=== PATIENT | male | born 1950 | race Caucasian/White ===

== ENCOUNTER → 2017-12-10 | Outpatient (CLI) | payer MEDICARE ==
[~2017-12-10] MED LIST: ALBU0.086 INH; AMLO10 PO; CIPR500T2 PO; FENO50TA PO; GLIP5 PO; LASI20TA PO; LORA-392 PO; TELM40 PO; TERA2CAP3 PO; TOPR50TA PO; nebulizer
--- NOTE | 2017-12-12 08:28 | RSPPFT ---
DATE OF PROCEDURE: 12/10/17 COMMENTS: Spirometry shows FVC of 2.6 predicted 5.0, FEV1 of 1.4 predicted 4.0, FV1/FVC ratio 54% predicted 78%. Post-bronchodilator FVC increases to 2.9 and FEV1 to 1.7. IMPRESSION: On the basis of the above, patient has an obstructive lung defect with responsiveness to acutely inhaled bronchodilator. Air trapping is present. Airways resistance is increased but may be a technical error and may need to be re-evaluated.
== END ==
LOC: HRSP 12:08
PROVIDERS: ATTEND Internal Medicine Pulmonary Disease
DX: J44.9 Chronic obstructive pulmonary disease, unspecified (principal)
CPT/HCPCS: 36600; 82805; 94060; 94618; 94726; 94729

== ENCOUNTER 2018-06-09 12:38 | Observation (INO) ==
[2018-06-09] MEDS ORDERED: Morphine Sulfate Inj 2 MG/ML Vial IV.PUSH ONE (12:56)
[2018-06-09] MEDS: Metoprolol Inj 5 MG/5 ML Vial IV.PUSH SCH ×3 (13:26→14:14)
--- NOTE | 2018-06-09 13:26 | XR ---
EXAM DATE: 06/09/2018 1:22 PM EST AGE/SEX: 67 years / Male INDICATIONS: Chest pain. CLINICAL DATA: This is the patient's initial encounter. Patient reports that signs and symptoms have been present for 4 - 6 days and indicates a pain score of 1/10. MEDICAL/SURGICAL HISTORY: None. None. COMPARISON: [facility] [place]ST SINGLE AP, 07/20/2011. . FINDINGS: A single AP view of the chest demonstrates the lungs to be symmetrically aerated without evidence of mass, infiltrate or effusion. The cardiomediastinal contours are unremarkable. Osseous structures a re intact. CONCLUSION: Negative examination. Electronically signed by: Wendy Brady MD 06/09/2018 1:24 PM EST
--- NOTE | 2018-06-09 13:29 | ED ---
HPI General Chief Complaint: Chest Pain Stated Complaint: cardiac Time Seen by Provider: 06/09/18 12:45 Source: patient Mode of arrival: ambulatory Limitations: no limitations History of Present Illness HPI narrative: 67-year-old male history diabetes hypertension hyperlipidemia and COPD arrives with palpitations and also a vague discomfort in the left neck. No fever chills or cough. Symptoms started while the patient was out at [employer]. Shortness of breath is reported. Patient reports some shortness of breath with exertion patient also reports chest pain at times with dyspnea. Patient denies history of coronary artery disease/stents. No prior cath. MD complaint: Reports chest pain STEMI Alert: No Duration: constant Onset: during rest Related Data Home Medications Medication Instructions Recorded Confirmed amlodipine [Norvasc] 10 mg PO DAILY 06/09/18 06/09/18 canagliflozin [Invokana] 300 mg PO DAILY 06/09/18 06/09/18 exenatide [Byetta] 10 mcg SUBCUT DAILY 06/09/18 fenofibrate nanocrystallized 145 mg PO DAILY 06/09/18 06/09/18 [Tricor] furosemide 20 mg PO DAILY 06/09/18 06/09/18 glipizide [Glucotrol] 5 mg PO DAILY 06/09/18 06/09/18 lorazepam [Ativan] 0.5 mg PO DAILY PRN 06/09/18 06/09/18 metformin 500 mg PO QPM 06/09/18 06/09/18 metoprolol tartrate 100 mg PO BID 06/09/18 06/09/18 omeprazole 20 mg PO DAILY 06/09/18 06/09/18 telmisartan [Micardis] 80 mg PO DAILY 06/09/18 06/09/18 Allergies Allergy/AdvReac Type Severity Reaction Status Date / Time No Known Allergies Allergy Verified 06/09/18 12:42 Review of Systems ROS: all other systems reviewed are negative Constitutional Denies fever(s) [facility] Medical History Medical History COPD (chronic obstructive pulmonary disease) (Acute) Diabetes (Acute) Hard of hearing (Acute) High cholesterol (Acute) Hypertension (Acute) Surgical History Surgical History Hx of colectomy (Acute) Hx of hernia repair (Acute) Social History Social History Substance History: No History of Abuse Smoking Status: Never smoker How Often Do You Have a Drink Containing Alcohol: Never Recent Travel in [facility] within the Last 8 Weeks: No Recent Out of Country Travel within the Last 8 Weeks: No Immunization History Tetanus Immunization: <5 Years Exam Narrative Exam Narrative: GENERAL: This 7-year-old male pleasant well-nourished well- developed mild distress due to pain and/or anxiety, BMI 42 SKIN: Focused skin assessment warm/dry. HEAD: Atraumatic. Normocephalic. EYES: Pupils equal and round. No scleral icterus. No injection or drainage. ENT: No nasal bleeding or discharge. Mucous membranes pink and moist. NECK: Trachea midline. No JVD. CARDIOVASCULAR: Regular rate and rhythm. No murmur appreciated. RESPIRATORY: No accessory muscle use. Clear to auscultation. Breath sounds equal bilaterally. GASTROINTESTINAL: Abdomen soft, non-tender, nondistended. Hepatic and splenic margins not palpable. MUSCULOSKELETAL: No obvious deformities. No clubbing. No cyanosis. No edema. NEUROLOGICAL: Awake and alert. No obvious cranial nerve deficits. Motor grossly within normal limits. Normal speech. PSYCHIATRIC: Appropriate mood and affect; insight and judgment normal. Course Initial Documented Vital Signs Temperature 98.0 F 06/09/18 12:39 Pulse Rate 90 06/09/18 12:39 Respiratory Rate 24 06/09/18 12:39 Blood Pressure 201/105 H 06/09/18 12:39 Pulse Oximetry 95 06/09/18 12:39 Last Documented Vital Signs Temperature 98.0 F 06/09/18 12:39 Pulse Rate 74 06/09/18 14:14 Respiratory Rate 16 06/09/18 14:14 Blood Pressure 172/86 H 06/09/18 14:14 Pulse Oximetry 98 06/09/18 14:14 Medical Decision Making [facility] Narrative Medical decision making narrative: Patient arrives with palpitations shortness of breath and neck discomfort on the left side. He has a history of diabetes hypertension and COPD. Lipids were elevated in the past. Workup so far is unremarkable including troponin EKG. EKG shows right bundle branch block with left anterior fascicular block rate of 79 with sinus arrhythmia. Chest pain center protocol considered most reasonable next step for patient. Medical Screen Exam Complete: Yes Emergency Medical Condition: Yes Differential Diagnosis Differential Diagnosis: NSTEMI, unstable angina, coronary vasospasm, PE, PTX, aortic dissection, pericarditis, myocarditis, endocarditis, PNA, esophageal disease, aneurysm, musculoskeletal etiologies, anxiety, cocaine/sympathomimetic abuse Lab Data Result diagrams: 06/09/18 13:15 06/09/18 13:15 Lab Results 06/09/18 06/09/18 06/09/18 Range/Units 13:15 13:15 13:15 WBC 7.8 (4.0-11.0) th/mm3 RBC 5.37 (4.50-5.90) mil/mm3 Hgb 15.3 (13.0-17.0) gm/dL Hct 45.8 (39.0-51.0) % MCV 85.2 (80.0-100.0) fL MCH 28.5 (27.0-34.0) pg MCHC 33.5 (32.0-36.0) % RDW 15.2 (11.6-17.2) % Plt Count 166 (150-450) th/mm3 MPV 8.1 (7.0-11.0) fL Neut % (Auto) 68.4 (16.0-70.0) % Lymph % (Auto) 21.0 (9.0-44.0) % Harmon % (Auto) 8.1 H (0.0-8.0) % Eos % (Auto) 2.0 (0.0-4.0) % Baso % (Auto) 0.5 (0.0-2.0) % Neut # (Auto) 5.3 (1.8-7.7) th/mm3 Lymph # (Auto) 1.6 (1.0-4.8) th/mm3 Harmon # (Auto) 0.6 (0.0-0.9) th/mm3 Eos # (Auto) 0.2 (0.0-0.4) th/mm3 Baso # (Auto) 0.0 (0.0-0.2) th/mm3 WBC Differential . Differential Comment Auto diff final PT 9.7 L (9.8-11.6) sec INR 1.0 Ratio APTT 26.0 (23.4-31.7) sec Sodium 136 (136-145) meq/L Potassium 3.9 (3.5-5.1) meq/L Chloride 104 (98-107) meq/L Carbon Dioxide 21.5 (21.0-32.0) meq/L Anion Gap 11 (5-15) meq/L BUN 24 H (7-18) mg/dL Creatinine 0.89 (0.60-1.30) mg/dL Estimated GFR 85 L (>89) mL/min Random Glucose 138 H (74-106) mg/dL Calcium 9.0 (8.5-10.1) mg/dL Magnesium 2.0 (1.5-2.5) mg/dL Total Bilirubin 0.5 (0.2-1.0) mg/dL AST 30 (15-37) U/L ALT 42 (12-78) U/L Alkaline Phosphatase 44 L (45-117) U/L Troponin I Less than 0.02 L (0.02-0.05) ng/mL B-Natriuretic Peptide (0-100) pg/mL Total Protein 7.8 (6.4-8.2) g/dL Albumin 3.9 (3.4-5.0) g/dL Lipase 360 (73-393) U/L 06/09/18 06/09/18 Range/Units 13:15 13:15 WBC (4.0-11.0) th/mm3 RBC (4.50-5.90) mil/mm3 Hgb (13.0-17.0) gm/dL Hct (39.0-51.0) % MCV (80.0-100.0) fL MCH (27.0-34.0) pg MCHC (32.0-36.0) % RDW (11.6-17.2) % Plt Count (150-450) th/mm3 MPV (7.0-11.0) fL Neut % (Auto) (16.0-70.0) % Lymph % (Auto) (9.0-44.0) % Harmon % (Auto) (0.0-8.0) % Eos % (Auto) (0.0-4.0) % Baso % (Auto) (0.0-2.0) % Neut # (Auto) (1.8-7.7) th/mm3 Lymph # (Auto) (1.0-4.8) th/mm3 Harmon # (Auto) (0.0-0.9) th/mm3 Eos # (Auto) (0.0-0.4) th/mm3 Baso # (Auto) (0.0-0.2) th/mm3 WBC Differential Differential Comment PT (9.8-11.6) sec INR Ratio APTT (23.4-31.7) sec Sodium (136-145) meq/L Potassium (3.5-5.1) meq/L Chloride (98-107) meq/L Carbon Dioxide (21.0-32.0) meq/L Anion Gap (5-15) meq/L BUN (7-18) mg/dL Creatinine (0.60-1.30) mg/dL Estimated GFR (>89) mL/min Random Glucose (74-106) mg/dL Calcium (8.5-10.1) mg/dL Magnesium Cancelled (1.5-2.5) mg/dL Total Bilirubin (0.2-1.0) mg/dL AST (15-37) U/L ALT (12-78) U/L Alkaline Phosphatase (45-117) U/L Troponin I (0.02-0.05) ng/mL B-Natriuretic Peptide 12 (0-100) pg/mL Total Protein (6.4-8.2) g/dL Albumin (3.4-5.0) g/dL Lipase (73-393) U/L Imaging Data Radiologist's impression: Chest X-Ray 06/09/18 12:56 CONCLUSION: Negative examination. Discharge Plan Physicians Team ED Provider: Jay Morgan Primary Care Provider: Vince Laurent Rxs /Orders / Referrals /Forms Prescriptions: No Action metoprolol tartrate 100 mg Tablet 100 mg PO BID RF: 0 lorazepam [Ativan] 0.5 mg Tablet 0.5 mg PO DAILY PRN (Reason: Anxiety) RF: 0 amlodipine [Norvasc] 10 mg Tablet 10 mg PO DAILY RF: 0 telmisartan [Micardis] 80 mg Tablet 80 mg PO DAILY RF: 0 omeprazole 20 mg Capsule,Delayed Release(Dr/Ec) 20 mg PO DAILY RF: 0 furosemide 20 mg Tablet 20 mg PO DAILY RF: 0 glipizide [Glucotrol] 5 mg Tablet 5 mg PO DAILY RF: 0 metformin 500 mg Tablet Extended Release 24hr 500 mg PO QPM RF: 0 exenatide [Byetta] 10 mcg/dose(250 mcg/mL) 2.4 mL Pen Injector 10 mcg SUBCUT DAILY RF: 0 fenofibrate nanocrystallized [Tricor] 145 mg Tablet 145 mg PO DAILY RF: 0 canagliflozin [Invokana] 300 mg Tablet 300 mg PO DAILY RF: 0 Discharge Interventions Interventions: Vital Signs Last Done: 06/09/18 12:53 Status ED Status: With Doctor
[2018-06-09 13:31] LABS: Baso % (Auto) 0.5 % (0.0-2.0); Eos # (Auto) 0.2 th/mm3 (0.0-0.4); Hematocrit 45.8 % (39.0-51.0); Hemoglobin 15.3 gm/dL (13.0-17.0); Lymph # (Auto) 1.6 th/mm3 (1.0-4.8); Mean Corpuscular HGB Conc 33.5 % (32.0-36.0); Mean Corpuscular Hemoglobin 28.5 pg (27.0-34.0); Mean Corpuscular Volume 85.2 fL (80.0-100.0); Mean Platelet Volume 8.1 fL (7.0-11.0); Mono # (Auto) 0.6 th/mm3 (0.0-0.9); Mono % (Auto) 8.1 % (0.0-8.0); Neut # (Auto) 5.3 th/mm3 (1.8-7.7); Neut % (Auto) 68.4 % (16.0-70.0); Platelet Count 166 th/mm3 (150-450); Red Blood Count 5.37 mil/mm3 (4.50-5.90); Red Cell Distribution Width 15.2 % (11.6-17.2); White Blood Count 7.8 th/mm3 (4.0-11.0)
[2018-06-09 13:41] LABS: Prothrombin Time 9.7 sec (9.8-11.6)
[2018-06-09 13:44] LABS: Alanine Aminotransferase 42 U/L (12-78)
[2018-06-09 13:46] LABS: Albumin 3.9 g/dL (3.4-5.0); Anion Gap 11 meq/L (5-15); Aspartate Aminotransferase 30 U/L (15-37); Blood Urea Nitrogen 24 mg/dL (7-18); Carbon Dioxide 21.5 meq/L (21.0-32.0); Chloride 104 meq/L (98-107); Glomerular Filtration Rate 85 mL/min (>89); Glucose,Random 138 mg/dL (74-106); Lipase 360 U/L (73-393); Potassium 3.9 meq/L (3.5-5.1); Sodium 136 meq/L (136-145)
[2018-06-09 13:48] LABS: Alkaline Phosphatase 44 U/L (45-117); Total Protein 7.8 g/dL (6.4-8.2)
[2018-06-09] MEDS ORDERED: Acetaminophen 500 MG Tablet PO PRN (14:59)
[2018-06-09] MEDS ORDERED: RESP: Albuterol Concentrated 2.5 MG/0.5 ML Neb NEB PRN (15:59)
--- NOTE | 2018-06-09 15:59 | P.HPCA ---
History of Present Illness Primary Care Physician: Vince Laurent MD Chief Complaint: Palpations History of Present Illness: 67 year old male with multiple comorbidities including type II diabetes, hypertension, COPD, sleep apnea, and morbidly obese presents to ER for further evaluation of palpations. Onset this morning while at [employer]. Describes a "fluttering sensation and feeling my heart beat." No associated symptoms nausea , vomiting, diaphoresis, or change dyspnea. Reports left-sided neck discomfort associated during episode, difficult for him to describe. Duration of palpations 2 hours occurring intermittently. Denies chest pain or discomfort. No history of atrial fibrillation, coronary artery disease, or DVT. No precipitating or relieving factors. Upon further discussion, reported exertional chest pain within the last few months. With exertion he becomes shortness of breath with accompanying left anterior chest pressure, no radiation. Chest pressure resolves with rest, as does dyspnea. Endorses having 1 /3 of lung function, therefore related chest pressure/dyspnea due to poor lung function. Past cardiac testing Remote chemical cardiac stress testing. Remote stress echocardiogram. Never required cardiac catheterization. Social history Known diabetes and hypertension. No known hyperlipidemia, not taking statin therapy despite diagnosis of diabetes. No known coronary artery disease. Lifelong non-smoker. No alcohol or recreational drug use. . Sedentary lifestyle. Family history Noncontributory for early onset cardiovascular disease. Mother from aneurysm. Father from colon cancer with metastasis to lung. He is an only child. - Diagnosis (1) Chest pain of unknown etiology (2) Type 2 diabetes mellitus (3) COPD (chronic obstructive pulmonary disease) (4) Sleep apnea (5) Hypertension Review of Systems All other systems reviewed negative except as stated in HPI PMFSH - History History Provided By: Patient - Medical History Medical History: Medical History (Last Updated 06/09/18 @ 17:47 by SONU Walton) COPD (chronic obstructive pulmonary disease) Diabetes GERD (gastroesophageal reflux disease) Hard of hearing High cholesterol Hypertension Sleep apnea - Surgical History Surgical History: Surgical History (Last Reviewed 06/09/18 @ 17:47 by SONU Walton) Hx of colectomy Hx of hernia repair - Family History Family History: Family History (Last Updated 06/09/18 @ 17:47 by SONU Walton) Father Colon cancer metastasized to lung Mother Aneurysm - Social History I have reviewed the patient's Social History: Yes - Tobacco History Second Hand Smoke Exposure: No Tobacco Use In Past 30 Days: No Smoking Status: Never smoker - Alcohol History How Often Do You Have a Drink Containing Alcohol: Never - Substance Use History Substance History: No History of Abuse - Travel History Recent Travel in the [place] Within the Last 8 Weeks: No Recent Travel Out of the Country Within the Last 8 Weeks: No - Immunization History Tetanus Immunization: <5 Years Medications and Allergies Active Medications: Active Medications Acetaminophen (Tylenol) 500 mg PO Q4H PRN PRN Reason: HEADACHE Ondansetron HCl (Zofran Inj) 4 mg IV.PUSH Q6H PRN PRN Reason: NAUSEA Sodium Chloride (Ns Flush) 2 ml IV.FLUSH UNSCH PRN PRN Reason: FLUSH AFTER USING IV ACCESS Last Admin: 06/09/18 13:26 Dose: 2 ml Sodium Chloride (Ns Flush) 2 ml IV.FLUSH BID CORINA Allergies Allergy/AdvReac Type Severity Reaction Status Date / Time No Known Allergies Allergy Verified 06/09/18 12:42 Home Medications Medication Instructions Recorded Confirmed Type albiglutide [Tanzeum] 50 mg SUBCUT Q7D 06/09/18 06/09/18 History amlodipine [Norvasc] 10 mg PO DAILY 06/09/18 06/09/18 History chlorthalidone 25 mg PO DAILY 06/09/18 06/09/18 History empagliflozin [Jardiance] 25 mg PO DAILY 06/09/18 06/09/18 History fenofibrate nanocrystallized 145 mg PO DAILY 06/09/18 06/09/18 History [Tricor] glipizide [Glucotrol] 20 mg PO BID 06/09/18 06/09/18 History insulin aspart U-100 [Novolog 8 unit SUBCUT DAILY 06/09/18 06/09/18 History Flexpen U-100 Insulin] insulin degludec [Tresiba 50 units SUBCUT HS 06/09/18 06/09/18 History FlexTouch U-200] lorazepam [Ativan] 0.5 mg PO DAILY PRN 06/09/18 06/09/18 History losartan 100 mg PO DAILY 06/09/18 06/09/18 History lubiprostone [Amitiza] 8 mcg PO BID 06/09/18 06/09/18 History metformin 1,000 mg PO BID 06/09/18 06/09/18 History metoprolol tartrate 100 mg PO BID 06/09/18 06/09/18 History omeprazole 20 mg PO DAILY 06/09/18 06/09/18 History simvastatin 20 mg PO QPM 06/09/18 06/09/18 History telmisartan [Micardis] 80 mg PO DAILY 06/09/18 06/09/18 History Exam Vital signs: Vital Signs 06/09/18 12:39 06/09/18 12:53 06/09/18 13:18 Temperature 98.0 F Pulse Rate 90 86 88 Respiratory Rate 24 16 Blood Pressure 201/105 H 184/89 H Pulse Oximetry 95 98 96 06/09/18 13:26 06/09/18 13:40 06/09/18 14:14 Temperature Pulse Rate 88 75 74 Respiratory Rate 18 16 16 Blood Pressure 187/92 H 153/75 H 172/86 H Pulse Oximetry 98 97 98 06/09/18 15:45 06/09/18 15:56 Temperature Pulse Rate 73 Respiratory Rate Blood Pressure Pulse Oximetry 98 97 Intake & Output 06/08/18 06/09/18 06/09/18 18:59 06:59 18:59 Weight 149.685 kg Narrative: GENERAL: Alert WN, WD, NAD, pleasant, morbidly obese male HEAD: NC, AT EYES: Sclera clear, conjunctiva without injection ENT: Mucous membranes pink and moist NECK: Supple, no masses, trachea midline CV: RRR, slight systolic murmur, no rub, gallop, or JVD, S1-S2 no S3-S4. No carotid bruits. Chest wall pain nontender with palpation. RESP: Diminished lungs throughout bilateral, no crackles, wheeze, or rhonchi, symmetrical chest rise, nonlabored, able to speak in full sentences ABD: Soft, NT, ND, no masses, positive bowel tones, large EXT: Pulses +2x4, no dependent edema MS: Normal tone x4 extremities, nontender, no obvious deformities, full range of motion NEURO: CN II through CN XII grossly intact, motor strength 5/5 PSYCH: A+O x3, pleasant affect, appropriate speech, appropriate, insight and judgment SKIN: Normal turgor, normal texture, no lesions, no rashes Results 06/09/18 13:15 06/09/18 13:15 Cardiac Enzymes 06/09/18 06/09/18 Range/Units 13:15 13:15 AST 30 (15-37) U/L Troponin I Less than 0.02 L (0.02-0.05) ng/mL B-Natriuretic Peptide 12 (0-100) pg/mL Coagulation 06/09/18 06/09/18 Range/Units 13:15 13:15 PT 9.7 L (9.8-11.6) sec APTT 26.0 (23.4-31.7) sec B-Natriuretic Peptide 12 (0-100) pg/mL CBC 06/09/18 Range/Units 13:15 WBC 7.8 (4.0-11.0) th/mm3 RBC 5.37 (4.50-5.90) mil/mm3 Hgb 15.3 (13.0-17.0) gm/dL Hct 45.8 (39.0-51.0) % Plt Count 166 (150-450) th/mm3 Neut # (Auto) 5.3 (1.8-7.7) th/mm3 Lymph # (Auto) 1.6 (1.0-4.8) th/mm3 Cross # (Auto) 0.6 (0.0-0.9) th/mm3 Eos # (Auto) 0.2 (0.0-0.4) th/mm3 Baso # (Auto) 0.0 (0.0-0.2) th/mm3 Comprehensive Metabolic Panel 06/09/18 Range/Units 13:15 Sodium 136 (136-145) meq/L Potassium 3.9 (3.5-5.1) meq/L Chloride 104 (98-107) meq/L Carbon Dioxide 21.5 (21.0-32.0) meq/L BUN 24 H (7-18) mg/dL Creatinine 0.89 (0.60-1.30) mg/dL Calcium 9.0 (8.5-10.1) mg/dL AST 30 (15-37) U/L ALT 42 (12-78) U/L Alkaline Phosphatase 44 L (45-117) U/L Total Protein 7.8 (6.4-8.2) g/dL Albumin 3.9 (3.4-5.0) g/dL Intake and Output 06/09/18 06/09/18 06/09/18 06:59 14:59 22:59 Other: Weight 149.685 kg Patient Weight 06/10/18 06:59 Weight 149.685 kg - Imaging and Cardiology Imaging: Impressions Chest X-Ray 06/09/18 12:56 CONCLUSION: Negative examination. EKG interpretations - EKG EKG results cardiology: sinus rhythm, normal axis, normal QRS, normal ST/T Caprini VTE Risk Assessment Caprini VTE Risk Assessment: Moderate/High Risk (score >= 2) Caprini Risk Assessment Model: Point Value = 1 Point Value = 2 Point Value = 3 Point Value = 5 Age 41-60 Minor surgery BMI > 25 kg/m2 Swollen legs Varicose veins or History of unexplained or recurrent spontaneous Oral contraceptives or hormone replacement Sepsis (< 1 month) Serious lung disease, including pneumonia (< 1 month) Abnormal pulmonary function Acute myocardial infarction Congestive heart failure (< 1 month) History of inflammatory bowel disease Medical patient at bed rest Age 61-74 Arthroscopic surgery Major open surgery (> 45 min) Laparoscopic surgery (> 45 min) Malignancy Confined to bed (> 72 hours) Immobilizing plaster cast Central venous access Age >= 75 History of VTE Family history of VTE Factor V Leiden Prothrombin [id number] Lupus anticoagulant Anticardiolipin antibodies Elevated serum homocysteine Heparin-induced thrombocytopenia Other congenital or acquired thrombophilia Stroke (< 1 month) Elective arthroplasty Hip, pelvis, or leg fracture Acute spinal cord injury (< 1 month) Prophylaxis Regimen: Total Risk Factor Score Risk Level Prophylaxis Regimen 0-1 Low Early ambulation 2 Moderate Order ONE of the following: *Sequential Compression Device (SCD) *Heparin 5000 units SQ BID 3-4 Higher Order ONE of the following medications: *Heparin 5000 units SQ TID *Enoxaparin/Lovenox 40 mg SQ daily (WT < 150 kg, CrCl > 30 mL/min) *Enoxaparin/Lovenox 30 mg SQ daily (WT < 150 kg, CrCl > 10-29 mL/min) *Enoxaparin/Lovenox 30 mg SQ BID (WT < 150 kg, CrCl > 30 mL/min) AND/OR *Sequential Compression Device (SCD) 5 or more Highest Order ONE of the following medications: *Heparin 5000 units SQ TID (Preferred with Epidurals) *Enoxaparin/Lovenox 40 mg SQ daily (WT < 150 kg, CrCl > 30 mL/min) *Enoxaparin/Lovenox 30 mg SQ daily (WT < 150 kg, CrCl > 10-29 mL/min) *Enoxaparin/Lovenox 30 mg SQ BID (WT < 150 kg, CrCl > 30 mL/min) AND *Sequential Compression Device (SCD) Assessment and Plan - Assessment (1) Chest pain of unknown etiology Code(s): R07.89 - Other chest pain Status: Acute Plan: Admitted chest pain center. Continue ruling out ACS with 3 sets of EKGs and cardiac enzymes. Seen and evaluated by Dr. Scot Mims. Reported sensation may be paroxysmal atrial fibrillation, continue to monitor on telemetry. First EKG normal sinus rhythm, however telemetry reviewed reveals normal sinus rhythm with frequent PACs. Reported exertional dyspnea and chest pressure concerning for angina equivalent. If ACS ruled out plan to proceed with Lexiscan in a.m. (2) Type 2 diabetes mellitus Code(s): E11.9 - Type 2 diabetes mellitus without complications Status: Chronic Plan: Hold home insulin therapy and oral medications. SSI medium dose coverage. (3) COPD (chronic obstructive pulmonary disease) Code(s): J44.9 - Chronic obstructive pulmonary disease, unspecified Status: Chronic Plan: Continue Symbicort. Albuterol nebulizers every 4 hours as needed for shortness of breath/wheezing. (4) Sleep apnea Code(s): G47.30 - Sleep apnea, unspecified Status: Chronic Plan: May use home CPAP machine during hospitalization. (5) Hypertension Code(s): I10 - Essential (primary) hypertension Status: Chronic Plan: Continue amlodipine, losartan, and chlorthalidone. (2) Type 2 diabetes mellitus Qualifiers: Diabetes mellitus technician terminal and repeater insulin use: unspecified technician terminal and repeater insulin use status Diabetes mellitus complication status: with unspecified complications Qualified Code(s): E11.8 - Type 2 diabetes mellitus with unspecified complications (3) COPD (chronic obstructive pulmonary disease) Qualifiers: Emphysema type: unspecified (5) Hypertension Qualifiers: Hypertension type: unspecified Qualified Code(s): I10 - Essential (primary) hypertension
[2018-06-09] MEDS ORDERED: Dextrose 50% in Water 50 ML Vial IV.PUSH PRN (16:01)
[2018-06-09 16:40] LABS: Creatine Kinase 89 U/L (39-308)
[2018-06-09] MEDS: Insulin NovoLOG Aspart Correctional Sugar Inj SQ SCH ×2 (17:28→22:11)
[2018-06-09] MEDS ORDERED: LORazepam 0.5 MG Tablet PO PRN (17:59)
[2018-06-09 19:33] LABS: Creatine Kinase 48 U/L (39-308)
[2018-06-09] MEDS: Metoprolol Tartrate 100 MG Tablet PO SCH (22:11)
[2018-06-10 03:38] VITALS: TEMP 98
[2018-06-10] MEDS: Insulin NovoLOG Aspart Correctional Sugar Inj SQ SCH (07:58)
--- NOTE | 2018-06-10 08:01 | ECG ---
Date Performed: 06/09/2018 Time Performed: 12:45:58 PTAGE: 67 years EKG: Sinus rhythm WITH OCCASIONAL SUPRAVENTRICULAR PREMATURE COMPLEXES RIGHT BUNDLE BRANCH BLOCK LEFT ANTERIOR FASCICU LAR BLOCK ABNORMAL ECG PREVIOUS TRACING : 07/20/2011 17.09 DOCTOR: Dayna Vivas Interpretating Date/Time 06/10/2018 07:59:57
--- NOTE | 2018-06-10 08:01 | ECG ---
Date Performed: 06/09/2018 Time Performed: 15:54:32 PTAGE: 67 years EKG: Sinus rhythm WITH SINUS ARRHYTHMIA RIGHT BUNDLE BRANCH BLOCK LEFT ANTERIOR FASCICULAR BLOCK ABNORMAL ECG Since PREVIOUS TRACING , no significant change noted DOCTOR: Dayna Vivas Interpretating Date/Time 06/10/2018 08:01:09
[2018-06-10 08:52] VITALS: RESP 18
[2018-06-10] MEDS ORDERED: Chlorthalidone 50 MG Tablet PO SCH (09:00)
[2018-06-10] MEDS ORDERED: Pantoprazole Sodium 20 MG DR Tablet PO SCH (09:00)
[2018-06-10] MEDS ORDERED: Fenofibrate 145 MG Tablet PO SCH (09:00)
[2018-06-10] MEDS ORDERED: LUBIPROSTONE 8 MCG PO SCH (09:00)
[2018-06-10] MEDS ORDERED: amLODIPine 10 MG Tablet PO SCH (09:00)
[2018-06-10] MEDS ORDERED: Regadenoson Inj 0.4 MG/5 ML Syringe IV.PUSH ONE (09:07)
[2018-06-10] MEDS: Metoprolol Tartrate 100 MG Tablet PO SCH (10:46)
--- NOTE | 2018-06-10 11:08 | NM ---
EXAM DATE: 06/10/2018 10:51 AM EST AGE/SEX: 67 years / Male INDICATIONS:Angina. . CLINICAL DATA: This is the patient's initial encounter. Patient reports that signs and symptoms have been present for 1 day and indicates a pain score of 3/10. MEDICAL/SURGICAL HISTORY: Chronic obstructive pulmonary disease. Diabetes mellitus type II. H ypertension. Inguinal hernia repair. COMPARISON: No prior exams available for comparison. DOSE: 11 mCi Tc 99m Myoview at rest 35 mCi [id number] at stress 0.4 mg Lexiscan STRESS SYMPTOMS: Dyspnea and chest pain. EJECTION FRACTION: 52 % TECHNIQUE: The patient underwent pharmacologic stress with infusion of prescribed dose. Continuous ECG tracing was monitored during stress. Gated SPECT imaging was performed after stress and conventi onal SPECT imaging was performed at rest. The examination was performed on a SPECT/CT scanner, both attenuation and non-corrected datasets were reviewed. FINDINGS: Distribution: The maximum perfused segment at stress is in the anterior wall. Perfusion Study: Hypoperfusion is identified in the inferior wall of the left ventricle both stress and at rest. There is no significant stressed induced reversible perfusion abnormality. Gated Study: Mild hypokinesia is evident in the inferior wall . Wall motion and wall thickening is o therwise well preserved.. The ejection fraction is calculated at 52%. RISK CATEGORY: Low (<1% Annual Motality Rate) CONCLUSION: 1. Fixed hypoperfusion abnormality involving the inferior wall of the left ventricle with associated hypokinesia. 2. No evidence of stressed induced perfusion abnormality. 3. Ejection fraction remains within normal limits. Electronically signed by: Jose Desir MD 06/10/2018 11:07 AM EST
[2018-06-10 12:11] VITALS: BP 145/91; PULSE 65; O2SAT 95
--- NOTE | 2018-06-10 16:56 | TR ---
Date Performed: 06/10/2018 Time Performed: 09:35:34 DOCTOR: Dayna Vivas DRUG LIST: CLINICAL HISTORY: CHEST PAIN REASON FOR TEST: CHEST PAIN REASON FOR ENDING: OBSERVATION: CONCLUSION: Lexiscan stress test was performed under standard four minute protocol. Radionuclid e was injected one minute prior to ending the test. No electrocardiographic abormalities were present to suggest ischemia. Nuclear imaging and interpretation are pending. COMMENTS: Lexiscan stress test was performed under standard four minute protocol. Radionuclide was injected one minute prior to ending the test. No electrocardiographic abormalities were present t o suggest ischemia. Nuclear imaging and interpretation are pending.
--- NOTE | 2018-06-10 17:56 | ECG ---
Date Performed: 06/09/2018 Time Performed: 19:05:29 PTAGE: 67 years EKG: Sinus rhythm RIGHT BUNDLE BRANCH BLOCK LEFT ANTERIOR FASCICULAR BLOCK ABNORMAL ECG PREVIOUS TRACING : 06/09/2018 15.54 Since the previous tracing, no significant change noted DOCTOR: Evie Ness Interpretating Date/Time 06/10/2018 17:54:05
== END 2018-06-10 12:54 | disposition home or self-care (01) ==
LOC: NEDA 12:38 → NEPE 12:38 → NEDA 16:11 → NEPFCDU 16:29
DX: H91.90 Unspecified hearing loss, unspecified ear; E11.9 Type 2 diabetes mellitus without complications; Z79.4 Long term (current) use of insulin; G47.30 Sleep apnea, unspecified; Z79.899 Other long term (current) drug therapy; E66.01 Morbid (severe) obesity due to excess calories; I10 Essential (primary) hypertension; J43.9 Emphysema, unspecified; R07.89 Other chest pain; E78.5 Hyperlipidemia, unspecified; K21.9 Gastro-esophageal reflux disease without esophagitis